=== PATIENT | female | born 1995 | race Caucasian/White ===

== ENCOUNTER → 2017-04-10 | Outpatient (CLI) | payer OTHER ==
--- NOTE | 2017-04-10 12:41 | DIAGNOSTIC IMAGING REPORT ---
LEFT FOREARM 2 VIEWS ROUTINE CLINICAL HISTORY: CONTUSION OF L FOREARM trauma COMPARISON: None. DISCUSSION: The bones and joint spaces appear intact. There is no evidence of fracture, dislocation or bony disease. There is no evidence for soft tissue swelling. IMPRESSION: Negative study. The above report was generated using voice recognition software. It may contain grammatical, syntax or spelling errors. Electronically signed by: Armin Whaley M.D. 04/10/2017 12:40 PM Dictated Date/Time: 04/10/2017 12:40 PM
== END | disposition home or self-care (01) ==
LOC: C.RAD 12:15
PROVIDERS: ATTEND Internal Medicine
DX: S50.12XA Contusion of left forearm, initial encounter (principal); X58.XXXA Exposure to other specified factors, initial encounter

== ENCOUNTER 2017-09-22 20:15 | Emergency (ER) | payer OTHER ==
[~2017-09-22] VITALS: Ht 157.5 cm; Wt 67.1 kg
[2017-09-22 20:21] VITALS: TEMP 36.7; Ht 157.5 cm; Wt 67.1 kg
[2017-09-22] MEDS ORDERED: BCPILLS PO (20:33)
[2017-09-22] MEDS ORDERED: VORT10TA12 PO (20:33)
[2017-09-22 21:27] LABS: BASO % 0.6 %; BASO ABS # 0.06 K/uL (0-0.2); HEMATOCRIT 37.5 % (37-47); IG# 0.03 K/uL (0.00-0.02); LYMPH ABS # 2.27 K/uL (1.2-3.4); MEAN CELL VOLUME 91.9 fL (80-100); MEAN CORPUSCULAR HEMOGLOBIN 31.9 pg (25-34); MEAN CORPUSCULAR HGB CONC 34.7 g/dl (32-36); MONO % 4.9 %; NEUT % 71.2 %; NEUT ABS # 7.34 K/uL (1.4-6.5); PLATELET COUNT 249 K/uL (130-400); RED CELL DISTRIBUTION WIDTH CV 12.5 % (11.5-14.5); RED CELL DISTRIBUTION WIDTH SD 42.3 fL (36.4-46.3)
[2017-09-22 21:51] LABS: CALCIUM 8.7 mg/dl (8.5-10.1); CREATININE 0.91 mg/dl (0.60-1.20)
[2017-09-22 21:55] LABS: ALBUMIN 3.7 gm/dl (3.4-5.0); ALKALINE PHOSPHATASE 48 U/L (45-117); ALT/SGPT 34 U/L (12-78); AST/SGOT 9 U/L (15-37); LIPASE 147 U/L (73-393); TOTAL PROTEIN 7.1 gm/dl (6.4-8.2)
--- NOTE | 2017-09-22 22:09 | EMERGENCY ROOM VISIT NOTE ---
History Report prepared by Db: Gisela Liang Under the Supervision of: Dr. Reynaldo Lockwood M.D. First contact with patient: 20:17 Chief Complaint: ALCOHOL OVERDOSE Stated Complaint: ALCOHOL History of Present Illness The patient is a 22 year old female who presents to the Emergency Room with complaints of an episode of an alcohol overdose occurring prior to arrival. Per EMS, the patient was drinking four locos tonight before the concert. They report that she vomited twice. She arrives to the emergency department covered in vomit. The patient does not wish to have me contact her mother. HPI and ROS limited secondary to alcohol intoxication. Source of History: EMS History Limited By: intoxication Onset: prior to arrival Position: other (global) Quality: other (overdose) Timing: other (episode) Associated Symptoms: + vomiting Review of Systems See HPI for pertinent positives & negatives. A total of 10 systems reviewed and were otherwise negative. Family History Patient reports no known family medical history. Social History Smoking Status: Unknown if Ever Smoked Alcohol Use: occasionally Marital Status: single Housing Status: lives with roommate Occupation Status: [employer] student Current/Historical Medications Scheduled Control Pills ( Control Pills), 1 TAB PO DAILY Vortioxetine HBr (Trintellix), 10 MG PO QAM Allergies Coded Allergies: No Known Allergies (Unverified , 09/22/17) Physical Exam Vital Signs Date Time Temp Pulse Resp B/P (MAP) Pulse Ox O2 Delivery O2 Flow Rate FiO2 09/23/17 00:06 60 18 100/59 97 09/22/17 21:34 63 18 97/45 97 09/22/17 21:18 63 18 98/52 100 Nasal Cannula 2.0 09/22/17 20:37 57 09/22/17 20:30 48 18 92/50 96 Nasal Cannula 2.0 09/22/17 20:30 Room Air 09/22/17 20:28 86 Room Air 09/22/17 20:27 Room Air 09/22/17 20:21 36.7 62 18 104/60 98 Room Air Physical Exam Vital signs reviewed. General: Odor of EtOH in the breath, disheveled 22-year-old female. No signs of trauma. covered in vomit. HEENT: Mild scleral injection bilaterally, PERRLA, neck supple, dry mucous membranes. Cardiovascular: Regular rate and rhythm, no extra sounds. Pulmonary: Clear to auscultation bilaterally, normal work of breathing. Abdomen: Soft, nontender, nondistended, positive bowel sounds. Musculoskeletal: Upper and lower extremities atraumatic, no peripheral edema Skin: Warm, dry, no rash. Atraumatic. Neurologic: Patient is currently nonverbal. Medical Decision & Procedures Laboratory Results 09/22/17 20:56 Red Blood Count 4.08, Mean Corpuscular Volume 91.9, Mean Corpuscular Hemoglobin 31.9, Mean Corpuscular Hemoglobin Concent 34.7, Mean Platelet Volume 13.0, Neutrophils (%) (Auto) 71.2, Lymphocytes (%) (Auto) 22.0, Monocytes (%) (Auto) 4.9, Eosinophils (%) (Auto) 1.0, Basophils (%) (Auto) 0.6, Neutrophils # (Auto) 7.34, Lymphocytes # (Auto) 2.27, Monocytes # (Auto) 0.50, Eosinophils # (Auto) 0.10, Basophils # (Auto) 0.06 09/22/17 20:56 Test 09/22/17 20:56 09/22/17 20:59 White Blood Count 10.30 K/uL (4.8-10.8) Red Blood Count 4.08 M/uL (4.2-5.4) Hemoglobin 13.0 g/dL (12.0-16.0) Hematocrit 37.5 % (37-47) Mean Corpuscular Volume 91.9 fL (80-100) Mean Corpuscular Hemoglobin 31.9 pg (25-34) Mean Corpuscular Hemoglobin Concent 34.7 g/dl (32-36) Platelet Count 249 K/uL (130-400) Mean Platelet Volume 13.0 fL (7.4-10.4) Neutrophils (%) (Auto) 71.2 % Lymphocytes (%) (Auto) 22.0 % Monocytes (%) (Auto) 4.9 % Eosinophils (%) (Auto) 1.0 % Basophils (%) (Auto) 0.6 % Neutrophils # (Auto) 7.34 K/uL (1.4-6.5) Lymphocytes # (Auto) 2.27 K/uL (1.2-3.4) Monocytes # (Auto) 0.50 K/uL (0.11-0.59) Eosinophils # (Auto) 0.10 K/uL (0-0.5) Basophils # (Auto) 0.06 K/uL (0-0.2) RDW Standard Deviation 42.3 fL (36.4-46.3) RDW Coefficient of Variation 12.5 % (11.5-14.5) Immature Granulocyte % (Auto) 0.3 % Immature Granulocyte # (Auto) 0.03 K/uL (0.00-0.02) Anion Gap 12.0 mmol/L (3-11) Est Creatinine Clear Calc Drug Dose 87.9 ml/min Estimated GFR () 104.5 Estimated GFR (Non- 90.2 BUN/Creatinine Ratio 21.0 (10-20) Calcium Level 8.7 mg/dl (8.5-10.1) Total Bilirubin 0.3 mg/dl (0.2-1) Direct Bilirubin < 0.1 mg/dl (0-0.2) Aspartate Amino Transf (AST/SGOT) 9 U/L (15-37) Alanine Aminotransferase (ALT/SGPT) 34 U/L (12-78) Alkaline Phosphatase 48 U/L (45-117) Total Protein 7.1 gm/dl (6.4-8.2) Albumin 3.7 gm/dl (3.4-5.0) Lipase 147 U/L (73-393) Human Chorionic Gonadotropin, Qual NEG (NEG) Ethyl Alcohol mg/dL 223.2 mg/dl (0-3) Bedside Glucose 116 mg/dl (70-90) Labs reviewed by ED physician. ED Course 2017: Past medical records reviewed. The patient was evaluated in room C11B. A complete history and physical examination was performed. 2329: I reevaluated the patient and offered to talk to her mother for her. She said that she wants to get out of here before her mother arrives. 0006: Upon reexamination the patient is resting comfortably. I discussed results and treatment plan with the patient. She verbalizes agreement and understanding. I talked to her parents and explained the treatment to the parents. The patient is ready for discharge. Medical Decision Differential diagnosis: Etiologies such as alcohol intoxication, toxicologic, infection, hypoglycemia, electrolyte abnormalities, cardiac sources, intracerebral event, neurologic, as well as others were entertained. This is a 22-year-old female who arrived originally by herself to the emergency department. The patient did not wish for me to discuss the case with her parents originally. She was placed in the prone position, aspiration precautions were taken. The patient was placed in room on the monitor. After sometime alcohol level was obtained. The patient's mother did call in and request a CBC as well as a renal profile over concerns that the patient had been having chronic abdominal pain for the past 2 months. On my examination the patient is nontender. Serial abdominal examinations were performed on the patient in the emergency department and no tended patient exhibit a surgical abdomen or abdominal tenderness. Patient's alcohol level was found to be 0.233. She has a normal liver profile and normal lipase. After sometime the patient's intoxication did clear. She stated that she wished to leave the emergency department before her mother arrived and she did not wish for me to speak with her mother. I also offered to do abdominal imaging for the patient however she declined. The patient's mother did arrive and at that time I did obtain permission from the patient to speak with her mother. Her mother is quite angry that the patient was brought here to the emergency department. I explained that if the patient is found publicly intoxicated by the police therefore brought here to the emergency department. Mother would like patient' s laboratory work which was given to her. Father expressed disbelieve that there are probably 10,000 drunks students here and why did they not all arrive here in the emergency department. Medication Reconcilliation Current Medication List: was personally reviewed by me Blood Pressure Screening Patient's blood pressure: Normal blood pressure Blood pressure disposition: Did not require urgent referral Impression Primary Impression: Alcoholic intoxication Additional Impression: Alcohol overdose Scribe Attestation The scribe's documentation has been prepared under my direction and personally reviewed by me in its entirety. I confirm that the note above accurately reflects all work, treatment, procedures, and medical decision making performed by me. Departure Information Dispostion Home / Self-Care Referrals Donna Be M.D. (PCP) Forms HOME CARE DOCUMENTATION FORM, IMPORTANT VISIT INFORMATION Patient Instructions My [facility] Additional Instructions LOLA = .223 You have been examined and treated today on an emergency basis only. This is not a substitute for, or an effort to provide, complete comprehensive medical care. It is impossible to recognize and treat all injuries or illnesses in a single emergency department visit. It is therefore important that you follow up closely with [facility]. Call as soon as possible for an appointment. Thank you for your time and consideration. I look forward to speaking with you again soon. Please don't hesitate to call us if you have any questions. Problem Qualifiers Primary Impression: Alcoholic intoxication Complication of substance-induced condition: uncomplicated Qualified Codes: F10.920 - Alcohol use, unspecified with intoxication, uncomplicated Additional Impression: Alcohol overdose Encounter type: initial encounter Injury intent: undetermined intent Qualified Codes: T51.94XA - Toxic effect of unspecified alcohol, undetermined, initial encounter
[2017-09-23 00:06] VITALS: BP 100/59; PULSE 60; O2SAT 97
== END 2017-09-23 00:10 | disposition home or self-care (01) ==
LOC: EDBD 20:15 → C.EDC 20:18
DX: F10.920 Alcohol use, unspecified with intoxication, uncomplicated (principal); T51.94XA Toxic effect of unspecified alcohol, undetermined, initial encounter; Y90.7 Blood alcohol level of 200-239 mg/100 ml